=== PATIENT | male | born 1995 | race Caucasian/White ===

== ENCOUNTER 2019-09-14 04:31 | Emergency (ER) | payer MEDICAID ==
[~2019-09-14] VITALS: Ht 175.3 cm; Wt 81.8 kg
[2019-09-14] MEDS ORDERED: ondansetron 4mg rapidly disintigrating tab PO ONE (06:05)
[2019-09-14] MEDS ORDERED: amox tr/potassium clavulanate 500mg/125mg TAB PO ONE (06:05)
[2019-09-14] MEDS ORDERED: AMOX1TAB87 PO (06:06)
[2019-09-14] MEDS ORDERED: TETanus/Pertussis (Acell)/Diphther VAC/PF (Tdap-Adult) 0.5ml syringe IMVAC ONE (06:30)
[2019-09-14 06:37] LABS: HIV ANTIBODY 1&2 RAPID NON-REACTIVE (Neg)
--- NOTE | 2019-09-14 07:35 | NUR ---
DEPARTED FROM ER PER EMS, ON GURNEY, IN GOOD CONDITION. DESTINATION IS [facility]. ALL BELONGINGS SENT WITH PATIENT.
--- NOTE | 2019-09-14 07:37 | NUR ---
[facility] REFUSED TO TRANSPORT TO [facility] WITH IV IN PLACE. IV DC'D AND BANDAGED. ALL PAPERWORK WITH CD WITH OFFICER. PT IN CUSTODY OF [facility], TRANSPORTED TO [facility] ED[facility] ADVISED NIKHIL AT [facility] ED OF DC OF IV.
[2019-09-14 07:40] VITALS: BP 134/78
[2019-09-15 11:38] LABS: HBSAG SCREEN Negative (Negative); HEPATITIS C ANTIBODY <0.1 s/co ratio (0.0-0.9)
== END 2019-09-14 07:46 | disposition short-term general hospital (02) ==
LOC: ER 04:32
DX: S02.32XA Fracture of orbital floor, left side, initial encounter for closed fracture (principal); S02.402A Zygomatic fracture, unspecified side, initial encounter for closed fracture; F15.90 Other stimulant use, unspecified, uncomplicated; Z79.899 Other long term (current) drug therapy; S00.81XA Abrasion of other part of head, initial encounter; Y08.89XA Assault by other specified means, initial encounter; Y93.89 Activity, other specified; Y92.89 Other specified places as the place of occurrence of the external cause; Y99.8 Other external cause status
CPT/HCPCS: 36415; 70450; 70486; 71045; 72125; 73560; 86703; 86706; 86803; 87340; 90471; 90715; 99285

== ENCOUNTER 2021-12-17 12:24 | Emergency (ER) | payer MEDICAID ==
[~2021-12-17] VITALS: Ht 175.3 cm; Wt 81.8 kg
[2021-12-17 12:50] VITALS: BP 125/62
[2021-12-17] MEDS ORDERED: CefTRIAXone 1000mg IM Kit (w/lidocaine diluent) IM STA (13:34)
[2021-12-17] MEDS ORDERED: azithromycin 250mg tablet PO ONE (13:35)
[2021-12-17 13:53] LABS: COLOR,URINE YELLOW (Yellow); GLUCOSE, URINE NEGATIVE (Neg); KETONES,URINE 15 mg/dl (Neg); LEUKOCYTE ESTERASE ,URINE LARGE (Neg); NITRITES, URINE NEGATIVE (Neg); OCCULT BLOOD,URINE LARGE (Neg); PROTEIN,URINE 30 mg/dl (Neg)
[2021-12-17 13:55] LABS: CLARITY,URINE CLOUDY (Clear); UA COLLECTION TYPE VOIDED
[2021-12-17 14:11] LABS: WBC,URINE TNTC /HPF (0-4)
[2021-12-17 14:12] LABS: BACTERIA,URINE 2+ /HPF (Neg); SQUAMOUS EPITHELIAL CELL,UR NONE SEEN /LPF (FEW)
== END 2021-12-17 14:07 | disposition home or self-care (01) ==
LOC: ER 12:25
DX: A64 Unspecified sexually transmitted disease (principal); R30.9 Painful micturition, unspecified; R10.32 Left lower quadrant pain; R30.0 Dysuria; F15.90 Other stimulant use, unspecified, uncomplicated
CPT/HCPCS: 36415; 81001; 87088; 87491; 87591; 96372; 99283; J0696